=== PATIENT | female | born 1965 | race Hispanic/Latino ===

== ENCOUNTER 2022-12-01 13:34 | Emergency (ER) | payer OTHER ==
--- OUTSIDE RECORDS SUMMARY | 2022-12-01 13:37 | XMS REPORT | Continuity of Care Document ---
:[address] [facility] [place], [place] t Address 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 00:00: Hospit a 00 l Rheumatoid Rheumatoid Disease Active M ethodi arthritis arthritis [facility] Wrist Wrist Problem Active 2019-05-01 Memor ia arthritis arthritis 02:46:27 l Active [place] Problem 05/01/2019 Kristina Najam Rheumatoid Problem Active 2019-05-01 M emoria arthritis Rheumatoid 02:46:27 l arthritis Jacques Active Problem 05/01/2019 Kristina Najam Ankle Ankle Diagnosis Active 2019-03-10 Mem oria swelling swelling 02:47:14 l Active [place] Diagnosis 03/10/2019 Kristina Najam 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 02:46:27 l Problem Jacques 05/01/2019 Kristina Najam Allergies, Adverse Reactions, Alerts Allergy Allergy Status Severity Reaction(s) Onset Inactive Treating Comm ents Source Name Type Date Date Clinician Codeine Codeine Active Info Not 2019- Memori a Phosphat Phosphat Available 4-04 l e e 00:00: Jacques 00 Social History Social Habit Start Date Stop Date Quantity Comments Source Alcohol intake 2022-08-12 2022-08-12 Ex-drinker [facility] 00:00:00 00:00:00 (finding) Hospital Tobacco use and 2022-04-15 2022-04-15 Smokeless tobacco Me thodist exposure 00:00:00 00:00:00 non-user Hospital Alcohol Comment 2021-09-17 2021-09-17 rare [facility] 00:00:00 00:00:00 Hospital Sex [birth year] At [birth year] [facility] 00:00:00 00:00:00 Hospital Smoking Status Start Date Stop Date Source Never smoked tobacco [facility] Medications Ordered Filled Start Stop Current Ordering Indication Dosage Frequency Signature Comments Components Source Medication Medication Date Date Medication? Clinician (SIG) Name Name omega Yes 1 capsule Methodi 3-dha-epa-f 08-12 st shan oil 09:34: Hospita (Fish OiL) 49 l 100-160-1,0 00 mg capsule multivitami Yes Chew. 1 po Methodi n - daily st tablet,chew 09:34: Hospit a able 49 l cetirizine Yes 10mg QD Take 10 mg M ethodi (ZyrTEC) 10 08-[address] MG tablet 09:34: daily. Prn Ho spita 49 allergy l symptoms cholecalcif Yes 400U QD Take 400 Me thodi asad, 9-[address] vitamin D3, 09:34: mouth Hospi ta 400 unit 49 daily. l tablet ipratropium 2021- No 2{spray Q12H 2 sprays Methodi (ATROVENT) 1-24 01-24 } into each st 21 mcg 15:45: 00:00 nostril Hospita (0.03 %) 38 :00 every 12 l nasal spray (twelve) hours. clindamycin 2021- No 300mg Q.5D Take 300 Methodi (CLEOCIN) 1-24 01-[address] 300 MG 15:45: 00:00 mouth 2 Hospita capsule 31 :00 (two) l times a day. methotrexat 2020-11 Yes Method i e sodium 1- st (METHOTREXA 00:00: Hospit a TE, 00 l ANTI-RHEUMA TIC, ORAL) folic acid Yes Methodi (FOLVITE) 1 8-23 st MG tablet 00:00: Hospita 00 l Vitamin D Yes Marium Peña 1 tablet Memoria 6-08 l 02:46: [place] Fish Oil Yes Marium Peña 1 capsule Memoria 6-08 l 02:46: Jacques Vitamin K2 Yes Marium Peña as M emoria 6-08 directed l 02:46: [place] Flaxseed Yes Marium Peña as Mem oria Oil 6-08 directed l 02:46: Jacques PredniSONE Yes Marium Peña 4 tab/d x Memoria 1-10 3days, 3 l 00:00: tab/d x Jacques 00 3days, 2 tab/dx 3days, 1 tab/d x 3days Vital Signs Vital Name Observation Time Observation Value Comments Source Systolic blood 2022-08-12 14:35:00 122 mm[Hg] [facility] pressure Diastolic blood 2022-08-12 14:35:00 79 mm[Hg] [facility] pressure Heart rate 2022-08-12 14:35:00 73 /min [facility] Respiratory rate 2022-08-12 14:35:00 18 /min [facility] Body height 2022-08-12 14:35:00 162.6 cm [facility] Body weight 2022-08-12 14:35:00 83.28 kg [facility] BMI 2022-08-12 14:35:00 31.51 kg/m2 [facility] Oxygen saturation in 2022-08-12 14:35:00 100 /min [facility] Arterial blood by Pulse oximetry Height 2019-04-30 19:00:00 [facility] [place] Diastolic (mm Hg) 2019-04-30 19:00:00 [facility] [place] Systolic (mm Hg) 2019-04-30 19:00:00 Adam rial [place] Weight 2019-04-30 19:00:00 [facility] Jacques Height 2019-03-26 19:00:00 [facility] Jacques Diastolic (mm Hg) 2019-03-26 19:00:00 Mem orial [place] Systolic (mm Hg) 2019-03-26 19:00:00 Adam rial Jacques Weight 2019-03-26 19:00:00 [facility] [place] Height 2019-02-26 16:45:00 [facility] [place] Diastolic (mm Hg) 2019-02-26 16:45:00 Mem orial Jacques Systolic (mm Hg) 2019-02-26 16:45:00 Adam rial [place] Weight 2019-02-26 16:45:00 [facility] [place] Height 2019-02-25 15:45:00 [facility] [place] Diastolic (mm Hg) 2019-02-25 15:45:00 Mem orial [place] Systolic (mm Hg) 2019-02-25 15:45:00 Adam rial [place] Weight 2019-02-25 15:45:00 [facility] [place] Height 2019-01-29 19:30:00 [facility] Diastolic (mm Hg) 2019-01-29 19:30:00 Mem orial Jacques Systolic (mm Hg) 2019-01-29 19:30:00 Adam rial [place] Weight 2019-01-29 19:30:00 [facility] [place] Height 2019-01-15 19:30:00 [facility] [place] Diastolic (mm Hg) 2019-01-15 19:30:00 Mem orial Jacques Systolic (mm Hg) 2019-01-15 19:30:00 Adam rial [place] Weight 2019-01-15 19:30:00 [facility] [place] Height 2018-12-28 21:30:00 [facility] [place] Diastolic (mm Hg) 2018-12-28 21:30:00 Mem orial [place] Systolic (mm Hg) 2018-12-28 21:30:00 Adam rial Jacques Weight 2018-12-28 21:30:00 [facility] [place] Diastolic (mm Hg) 2018-12-03 18:30:00 Mem orial [place] Systolic (mm Hg) 2018-12-03 18:30:00 Adam rial Jacques Weight 2018-12-03 18:30:00 [facility] [place] Procedures Procedure Date / Time Performing Clinician Source Performed CBC WITH PLATELET AND 2022-08-02 14:34:00 Salome Ravi [facility] DIFFERENTIAL [place] COMPREHENSIVE METABOLIC 2022-08-02 14:34:00 [facility] PANEL [place] LDH 2022-08-02 14:34:00 [facility], [facility] [place] BETA-2 MICROGLOBULIN 2022-08-02 14:34:00 [facility], [facility] [place] CBC WITH PLATELET AND 2022-04-08 17:23:00 [facility] DIFFERENTIAL [place] COMPREHENSIVE METABOLIC 2022-04-08 17:23:00 [facility] PANEL [place] LDH 2022-04-08 17:23:00 [facility] [place] BETA-2 MICROGLOBULIN 2022-04-08 17:23:00 [facility], [facility] [place] LDH 2021-12-11 16:32:00 [facility] COMPREHENSIVE METABOLIC 2021-12-11 16:32:00 [facility] PANEL CLL PROGNOSTIC PANEL, 2021-12-11 16:32:00 [facility] COMPREHENSIVE CBC WITH PLATELET AND 2021-12-11 16:32:00 [facility] DIFFERENTIAL Plan of Care Planned Activity Planned Date Details Comments Source Future Scheduled 2022-11-18 COVID-19 VACCINE (#1) [facility] Test 21:00:42 [code = COVID-19 VACCINE (#1)] Future Scheduled 2022-11-18 Pneumococcal Vaccine: [facility] Test 21:00:42 Pediatrics (0 to 5 Years) and At-Risk Patients (6 to 64 Years) (1 - PCV) [code = Pneumococcal Vaccine: Pediatrics (0 to 5 Years) and At-Risk Patients (6 to 64 Years) (1 - PCV)] Future Scheduled 2022-11-18 SHINGLES VACCINES (1 Met [facility] Test 21:00:42 of 2) [code = SHINGLES VACCINES (1 of 2)] Future Scheduled 2022-11-[address] [facility] Test 21:00:42 malignant neoplasm of cervix (procedure) [code = 710643545] Future Scheduled 2022-11-[address] [facility] Test 21:00:42 SCREENING [code = BREAST CANCER SCREENING] Future Scheduled 2022-11-18 COLONOSCOPY SCREENING [facility] Test 21:00:42 [code = COLONOSCOPY SCREENING] Future Scheduled 2022-11-18 INFLUENZA VACCINE [facility] Test 21:00:42 [code = INFLUENZA VACCINE] Encounters Start End Encounter Admission Attending Care Care Encounter Source Date/Time Date/Time Type Type Clinicians Facility Department ID 2022-12-01 Outpatient [id number] Memoria 13:36:38 [id number] [place] [id number] 2022-08-12 2022-08-12 Office Breonna, 1.2.840.1 [id number] Methodi 09:30:00 09:57:41 Visit Salome 55222.1.1 239 s t [place] 3.430.2.7 Hospit a .3.538922 l .8 2022-08-12 2022-08-12 Outpatient [facility] [id number] Agency 00:00:00 00:00:[address] [place] [address] 2022-08-12 2022-08-12 Travel 1.2.840.1 [id number] Methodi 00:00:00 00:00:[address] 3.430.2.7 0.2.7.3.698 spita .3.891440 084.8 l .8 2022-08-02 2022-08-02 Telephone Valentin, 1.2.840.1 [id number] Methodi 00:00:00 00:00:[address] 3.430.2.7 Hospit a .3.160368 l .8 2022-04-15 2022-04-15 Office Breonna, 1.2.840.1 [id number] Methodi 09:30:00 09:57:31 Visit [place] 36336.1.1 445 s t [place] 3.430.2.7 Hospit a .3.994343 l .8 2022-04-15 2022-04-15 Outpatient BREONNA, [facility] [id number] Agency 00:00:00 00:00:00 [place] [address] Met [facility] st 2021-12-17 2021-12-17 Telemedici Breonna, 1.2.840.1 [id number] Methodi 09:30:00 10:07:03 ne [place] 91115.1.1 725 s t [place] 3.430.2.7 Hospit a .3.729986 l .8 2021-12-17 2021-12-17 Outpatient BREONNA, [facility] [id number] Agency 00:00:00 00:00:00 [place] 725 Met [facility] st 2021-12-11 2021-12-11 Orders Geoff, 1.2.840.1 [id number] Methodi 00:00:00 00:00:00 Only Dongx[place] [address]87.1.[address] 3.430.2.7 Hospit a .3.672324 l .8 2021-09-17 2021-09-17 Outpatient BREONNA, [facility] [id number] Agency 00:00:00 00:00:00 [place] 005 Met [facility] 2021-09-11 2021-09-11 Outpatient GEOFF [facility] [id number] Agency 00:00:00 00:00:00 DONGXIN [address] 2021-09-06 2021-09-06 Outpatient MAINORU, [facility] [id number] Agency 00:00:00 00:00:00 [place] 812 Met [facility] 2021-07-16 2021-07-16 Outpatient GEGE, [facility] [id number] Agency 00:00:00 00:00:00 BENJAMIN [address] 2021-07-02 2021-07-02 Outpatient GEGE, [facility] [id number] Agency 00:00:00 00:00:00 BENJAMIN [address] 2019-04-30 2019-04-30 Outpatient [facility] [id number] Memoria 14:00:00 14:00:00 Rheumatol Rheumatolog l ogy y [facility], , [facility] 2019-03-26 2019-03-26 Outpatient [facility] [id number] Memoria 14:00:00 14:00:00 Rheumatol Rheumatolog l [facility], , [facility] 2019-02-26 2019-02-26 Outpatient [facility] [id number] Memoria 11:45:00 11:45:00 Rheumatol Rheumatolog l [facility], , [facility] 2019-02-25 2019-02-25 Outpatient [facility] [id number] Memoria 10:45:00 10:45:00 Rheumatol Rheumatolog l [facility], , [facility] 2019-01-29 2019-01-29 Outpatient [facility] [id number] Memoria 14:30:00 14:30:00 Rheumatol Rheumatolog [facility], , [facility] 2019-01-15 2019-01-15 Outpatient [facility] [id number] Memoria 14:30:00 14:30:00 Rheumatol Rheumatolog l [facility], , [facility] 2018-12-28 2018-12-28 Outpatient [facility] [id number] Memoria 15:30:00 15:30:00 Rheumatol Rheumatolog l [facility], , [facility] 2018-12-03 2018-12-03 Outpatient [facility] [id number] Memoria 13:26:00 13:26:00 Rheumatol Rheumatolog [facility], , [facility] 2018-12-03 2018-12-03 Outpatient [facility] [id number] Memoria 12:30:00 12:30:00 Rheumatol Rheumatolog l y y [facility], , [facility] Results Test Description Test Time Test Comments Results Result Comments Source Comprehensive metabolic panel 2022-08-05 23:58:00 Test Item Value Reference Range Interpretation Comme nts Glucose (test code = 95 mg/dL 65-99 Fastin g reference 2345-7) interval BUN (test code = 3094-0) 18 mg/dL 7-25 Creatinine (test code = 0.73 mg/dL 0.50-1.03 2160-0) eGFR (test code = 8257) See_Comment The eGFR is based on the CKD-EPI 202 1 equation. To ca lculate the new eGFR fr om a previous Creati nine or Cystatin Cresul t, go to [email or web address] abrahan.org/ professionals/k doqi/gfr %5Fcalculator [Automated mess age] The system which ge nerated this result tra nsmitted reference range : > OR = 60 mL/min/1.73m 2. The reference range was not used to interpr et this result as normal/abnormal . BUN/creatinine ratio NOT APPLICABLE See_Comment [Aut omated message] (test code = 3097-3) The [employer] tem which generated this result transmitted ref erence range: 6 - 22 ( calc). The reference r kevin was not used to int erpret this result as normal/abnormal . Sodium (test code = 139 mmol/L 581-795 6015-2) Potassium (test code = 4.9 mmol/L 3.5-5.3 2823-3) Chloride (test code = 104 mmol/L 98-110 2075-0) CO2 (test code = 2027-9) 30 mmol/L 20-32 Calcium (test code = 9.6 mg/dL 8.6-10.4 79743-5) Protein (test code = 7.1 g/dL 6.1-8.1 2885-2) Albumin, S (test code = 4.1 g/dL 3.6-5.1 1751-7) Globulin, total (test See_Comment [Auto mated message] code = 88098-2) The system w [employer] generated this result transmitted ref erence range: 1.9 - 3. 7 g/dL (calc). The ref erence range was not u sed to interpret this result as normal/abnor mal. Albumin/globulin ratio See_Comment [Aut omated message] (test code = 1759-0) The [employer] tem which generated this result transmitted ref erence range: 1.0 - 2. 5 (calc). The ref erence range was not u sed to interpret this result as normal/abnor mal. Total bilirubin (test 0.5 mg/dL 0.2-1.2 code = 1974-2) Alkaline phosphatase 78 U/L 37-153 (test code = 6768-6) AST (test code = 1920-8) 25 U/L 10-35 ALT (test code = 1742-6) 22 U/L 6-29 TAYLA (test code = TAYLA) FASTING:YES FASTING: YES RAC (test code = RAC) Performing Organization Information: Site ID: KAYA Name: [facility] Address: [address] [place] [phone] Director: Neeraj KimbleCook [facility] CenterBeta-2 [id number] 23:58:00 Test Item Value Reference Range Interpretation Comments Beta-2 microglobulin 2.11 mg/L See_Comment [Autom ated (test code = 1952-1) message ] The system which generated this result transmitted reference range : < OR = 2.51. Th e reference range was not used to interpret this result as normal/abnormal . TAYLA (test code = FASTING:YES TAYLA) FASTING: YES RAC (test code = Performing RAC) Organization Information: Site ID: IG Name: [facility] Address: [address] [place] [id number] Director: Dr. Neeraj CastañedaUniversity Hospitals TriPoint [facility] CenterLDH2022-09-12 23:58:00 Test Item Value Reference Range Interpretation Comments LDH (test code = 141 U/L 120-250 32779-7) TAYLA (test code = FASTING:YES FASTING: YES TAYLA) RAC (test code = Performing Organization RAC) Information: Site ID: KAYA Name: [facility] Address: [address] [place] [phone] Director: Neeraj [facility]Mer[facility] Hospital[facility] with platelet and [id number] 23:58:00 Test Item Value Reference Interpretation Comments Range WBC (test code = See_Comment H [Automated message] 6690-2) The system [employer] generated this result transmitted ref erence range: 3.8 - 10 .8 Thousand/uL. Th e reference range was not used to int erpret this result as normal/abnormal . RBC (test code = See_Comment [Automated message] 789-8) The system [employer] generated this result transmitted ref erence range: 3.80 - 5 .10 Million/uL. The reference range was not used to int erpret this result as normal/abnormal . HGB (test code = 13.1 g/dL 11.7-15.5 718-7) HCT (test code = 41.0 % 35.0-45.0 4544-3) MCV (test code = 95.1 fL 80.0-100.0 787-2) MCH (test code = 30.4 pg 27.0-33.0 785-6) MCHC (test code = 32.0 g/dL 32.0-36.0 786-4) RDW (test code = 13.7 % 11.0-15.0 788-0) Platelet count See_Comment [Automated m essage] (test code = 777-3) The syst em which generated this result transmitted ref erence range: 140 - 40 0 Thousand/uL. Th e reference range was not used to int erpret this result as normal/abnormal . MPV (test code = 12.2 fL 7.5-12.5 776-5) Neutrophils, See_Comment [Automated mes mar] absolute (test code The syst em which = 751-8) generated this result transmitted ref erence range: 1,500 - 7,800 cells/uL. The reference range was not used to int erpret this result as normal/abnormal . Lymphocytes, See_Comment H [Automated mes mar] absolute (test code The syst em which = 731-0) generated this result transmitted ref erence range: 850 - 3, 900 cells/uL. The reference range was not used to int erpret this result as normal/abnormal . Monocytes, absolute See_Comment H [Automa alan message] (test code = 742-7) The syst em which generated this result transmitted ref erence range: 200 - 95 0 cells/uL. The reference range was not used to int erpret this result as normal/abnormal . Eosinophils, See_Comment [Automated mes mar] absolute (test code The syst em which = 711-2) generated this result transmitted ref erence range: 15 - 500 cells/uL. The reference range was not used to int erpret this result as normal/abnormal . Basophils, absolute See_Comment [Automa alan message] (test code = 704-7) The syst em which generated this result transmitted ref erence range: 0 - 200 cells/uL. The reference range was not used to int erpret this result as normal/abnormal . Neutrophils (test 7.8 % code = 770-8) Lymphocytes (test 89.1 % code = 736-9) Monocytes (test 2.3 % code = 5905-5) Eosinophils (test 0.6 % code = 713-8) Basophils + RC 0.2 % (test code = 706-2) Nucleated RBC (test Smudge c ells code = 8251-1) present.Revie w of peripheral smea r confirmsautomat ed results. TAYLA (test code = FASTING:YES TAYLA) FASTING: YES RAC (test code = Performing RAC) Organization Information: Site ID: RGA Name: [facility] Address: [address] [place] [phone] Director: Neeraj Brock Lab Interpretation Abnormal (test code = 00535-6) [facility] HospitalChronic Lymphocytic Leukemia (CLL) Prognostic Panel, [id number] 05:22:00 Test Item Value Reference Interpretation Comments Range COMPREHENSIVE SEE NOTE Results review ed by Lrary CROWE (test Pamela Waterman CLINICAL code = 3937) DIAGNOSIS:Chron ic lymphocytic dakota kemia. DIAGNOSIS: The Peripheral blood sample wa s analyzed for prognosticf actors in Chronic Lymphoc ytic Leukemia: 88% o f lymphoid cells are CD19+ positive cells. These CD 19+cells showed 48% posi tivity for ZAP70 and 23% p ositivity forCD38. Fish a nalysis showed a negati ve result. Chromosomeanaly sis revealed a normal karyot ype. B2 microglobulin n otperformed. IgVH gene seque ncing was unmutated and b elongs toVH1-69 family . IN SUMMARY, THE CLL LEUKEMI C CELLS IN THIS PATIENT SH OWUNFAVORABLE PROGNOSTIC FEAT URES BASED ON THE LIMITED MAR KERSSTUDIED. CORRELATION WIT H CLINICAL AND OTHER DIAGNOSTICINFOR MATION IS RECOMMENDED. Th is prognostic evaluation is r elevant in patients withch ronic lymphocytic dakota kemia and the diagnosis of CL L shouldbe confirmed befor e the use of this prognostic panel. This is a final repo rt. If you have any questi ons about this report, pl ease [phone], extension [phone]. Viability (test 96 % code = 00043-8) ZAP70+/CD19+ 48 % See_Comment H 88% of the lymp hocytes are (test code = CD19 positive a nd 42% of 96271-7) theselected lym phocytes express ZAP70 w ith CD19. Therefore, 48%o f the B-cells (CD19 positive) are ZAP70 positive. Our d mil shows that patients w ith >/= 10% ZAP70 posit ivecells have more aggressive disease. Positivity for ZAP-70 in the leukemic cells in patients withchronic lym phocytic leukemia usuall y, but not always,correlat es with more aggressive dise ase, unmutated IgVH, andpositivity f or CD38. Negativity for ZAP-70 does not alwaysrule out unmutated IgVH or aggress mariluz disease. We stronglyreco mmend correlation wit h IgVH mutation. As an internal control, we gat ed on T-cells. 7% of thelymphocytes are CD3 positive and 6% of the selectedlymphoc ytes express ZAP70 with CD3. Therefore, 86% of theT-joe ls (CD3 positive) are Z AP70 positive. This test was developed and i ts analytical performancechar acteristics have been deter mined by [employer] [facility]. It has not beencleared or approved by FDA. This assay has been validatedpursua nt to the CLIA regulation s and is used for clinicalpur poses. [Automated mess age] The system which ge nerated this result transmit alan reference range: <=10. Th e reference range was not u sed to interpret this result as normal/abnormal . % OF CD19/CD5 23 % See_Comment [Automated me ssage] The (test code = system which ge nerated this 8131-5) result transmit alan reference range: <=30. Th e reference range was not u sed to interpret this result as normal/abnormal . IGVH STATUS (test UNMUTATED code = 96410-9) Mutation rate SEE NOTE Results review ed by Marko (test code = Pamela Mobley 3941) Mutation Rate: 0.00% Based on the sequence analysis the clonal IgVH gen e belongsto VH1-69 family. The IgVH gene mutation status of B-cell chronic lymphoc yticleukemia (CLL) was deter mined by PCR-based amplificationfo llowed by [place] sequencosvaldo ng. B-cell CLL patients wi thunmutated IgVH gene usual ly have more aggressive dise ase andshorter surv ival. In contrast, patie nts with mutated geneusu ally have a more indolent d isease. Specimen contai ningless than 10% clonal B-ce lls may not yield an interpretablere sult. This test was develo ped and its analytical performancechar acteristics have been deter mined by [employer].It has not been cleared or approved by the FDA. This a ssayhas been validated pursu ant to the CLIA regulation s and isused for clinical pu rposes. Beta-2 TNP mg/L TEST NOT PERFOR MED Duplicate microglobulin test. (test code = 1952-1) FISH,B CELL See Below Order ID: [id number] Specimen LYMPHOCYTIC Type: Blood Cli nical LEUKEMIA PANEL Indication: C hronic (test code = lymphocytic dakota kemia of B- 16324-5) not having achi eved remission RESUL T:NEGATIVE FISH RESULT for TRISOMY 12, DELETIONS OF 6q , GEORGIE,13q14 and TP53 INTERP RETATION:FISH analysis, using probes described below , did not detecttrisomy 1 2 (yvrose 12) or deletions of 6q (6q21,6q23), GEORGIE(11q22.3), 1 3q14, and TP53 (17p13.1), common abnormalitiesob served in chronic lymphoc ytic leukemia/small lymphocyticlymp fabiana (CLL/SLL). Plea se expect the result of any o ther concurrent test in aseparate report. RECOMMENDATIONS :Correlation with a chromoso me result as well as othercl inical and laboratory find ings is recommended. NOMENCLATURE:nu c shan(SEC63,MYB,A TM,D12Z3,DLEU ,LAMP1,TP53)x2[ 100] ASSAY INFORMATION:Met hod: FISH (Digital Image Analysis: [employer]/Met afer)Cells Counted: 300 Th is test will not detect othe r cytogenetic abnormalitiesth at may have clinical signif icance. Fluorescence in-situhybridiz ation (FISH) was performed u sing the probes specific for chromosome casey ons 6q21/6q23 (SEC63,MYB), 11 q22.3 (GEORGIE),12 centro mere (D12Z3), 13q14 (DLEU), 1 3q34 (LAMP1), ywl36q15.1 (TP5 3; p53) [MetaSystems]. The cutoff values for marc pheral blood and bone marrow are,respectivel y: 6q21- (4%) (6%), 6q23- (4% ) (3%), 6q- (4%)(5%), 11q(6 %) (4%), +12 (4%) (5%), 13q- (4%) (4%), -13 (4%)(3%), 1 7p- (5%) (5%). This test was developed and i ts analytical performancechar acteristics have been deter mined by [employer] [facility], [place], [place]. It has not beencleared or approved by the U.S. Food a nd DrugAdministrat ion. This assay has been validated pursuant [facility] CLIA regulations and is used for clinical purpos es. Donta Valencia, PhD, FA [facility] (060) [id number] El ectronic Signature: 12/15 5:00 PM CHROMOSOME See Below Order ID: [id number] Specimen ANALYSIS, CLL/LPD Type: Bloo d Clinical (test code = Indication: Chr onic 84764-1) lymphocytic [place] kemia of B- not having achi eved remission RESUL T:NORMAL KARYOTYPE ([facility] STUDY) INTERPRETATION: Chromosome analysis reveal ed a normal karyotype with noevidence of any acquired cl onal abnormality. Ho wever, thisis a limited study ; only 5 metaphase cells were availablefor is study. Low mitotic activit y precluded the standardana lysis of 20 metaphases. Ple ase expect the results of any other concurrent stud y in aseparate repor t. RECOMMENDATIONS :Correlation with other clin ical and laboratory find ings isrecommended. NOMENCLATURE:46 ,XX[5] ASSAY INFORMATION:Met hod: G-Band (Digital Analys is: MetaSystCells C ounted: 5Band Level: 400Cells Analyzed: 5Cells Karyotyp ed: 2 This normal result d oes not exclude a hematologicmali gnancy. Small clonal populati ons and subtle chromosomeabnor malities may not be identifi ed. Kwan Carrero, PhD, FA CMG Electronic Sign ature: 12/19/2021 2:50 PM TAYLA (test code = FASTING: TAYLA) UNKNOWN RAC (test code = Performing RAC) Organization Information: Site ID: Name[facility], Address: [address] [place] [id number] Director: Cathy Houston MD,PhD,SANJAY Lab Abnormal Interpretation (test code = 63936-9) [facility]
[2022-12-01] MEDS ORDERED: MORPHINE 4 MG/ML SYR ONE (13:53)
[2022-12-01] MEDS ORDERED: ASPIRIN 81 MG CHEWABLE TABLET ONE (13:53)
[2022-12-01] MEDS ORDERED: ONDANSETRON 4 MG/2 ML VIAL ONE (13:54)
--- NOTE | 2022-12-01 14:28 | RAD REPORT ---
EXAM DESCRIPTION: RAD - Chest Single View - 12/01/2022 2:23 pm CLINICAL HISTORY: CHEST PAIN Chest pain. COMPARISON: No comparisons FINDINGS: Portable technique limits examination quality. The lungs are grossly clear. The heart is normal in size. No displaced fractures. IMPRESSION: No acute intrathoracic process suspected.
[2022-12-01 16:14] LABS: Absolute Lymphocytes (CBC) 54.1 K/uL (0.7-4.9); Hematocrit 39.9 % (36.0-45.0); Lymphocytes % 84.8 % (15.3-44.8); MCV 93.9 fL (80-100); RBC Red Blood Cell Count 4.25 M/uL (3.86-4.86)
[2022-12-01 16:32] LABS: Albumin 3.5 g/dL (3.4-5.0); Bilirubin Total 0.4 mg/dL (0.2-1.0); Magnesium 2.2 mg/dL (1.6-2.4); Potassium 4.8 mmol/L (3.5-5.1); Protein, Total 7.2 g/dL (6.4-8.2); Troponin High Sensitivity 4.1 pg/mL (<58.9)
[2022-12-01 17:24] LABS: Platelet Estimate ADEQ; White Blood Cell Scan OK (OK)
[2022-12-01 17:25] LABS: Anisocytosis 1+; Blood Morphology Comment NOTED (NOT SEEN)
--- NOTE | 2022-12-01 18:01 | RAD REPORT ---
EXAM DESCRIPTION: US - Abdomen Exam Limited - 12/01/2022 5:52 pm CLINICAL HISTORY: ABD PAIN COMPARISON: No comparisons FINDINGS: The gallbladder demonstrates multiple gallstones and gallbladder sludge. No pericholecysti c fluid or gallbladder wall thickening. The common bile duct is normal measuring 3 mm. The liver demonstrates no findings of intrahepatic biliary dilatation. IMPRESSION: Cholelithiasis and gallbladder sludge.
--- NOTE | 2022-12-01 18:12 | ER ---
Nurse's Notes [facility] Name: Libia Vann Age: 57 yrs Sex: Female : 1965 Arrival Date: 12/01/2022 Time: 13:36 Bed 15 Private MD: Diagnosis: Upper abdominal pain, unspecified;Chest pain, unspecified Presentation: 12/01 13:44 Chief complaint: Substernal chest pain x 10 minutes. Coronavirus screen: At this time, hb the client does not indicate any symptoms associated with coronavirus-19. Ebola Screen: No symptoms or risks identified at this time. Initial Sepsis Screen: Does the patient meet any 2 criteria? No. Patient's initial sepsis screen is negative. Does the patient have a suspected source of infection? No. Patient's initial sepsis screen is negative. Risk Assessment: Do you want to hurt yourself or someone else? Patient reports no desire to harm self or others. Onset of symptoms was December 01, 2022. 13:44 Method Of Arrival: Wheelchair hb 13:44 Acuity: ERMIAS 3 hb Triage Assessment: 13:45 General: Appears distressed, uncomfortable, Behavior is cooperative, appropriate for bp age, agitated, anxious. Pain: Complains of pain in chest. EENT: No deficits noted. Neuro: No deficits noted. Cardiovascular: No deficits noted. Respiratory: No deficits noted. GI: No signs and/or symptoms were reported involving the gastrointestinal system. : No signs and/or symptoms were reported regarding the genitourinary system. Derm: No deficits noted. Musculoskeletal: No deficits noted. Historical: - Allergies: 13:45 No Known Allergies; hb - PMHx: 13:45 CLL; RA; hb - Immunization history:: Adult Immunizations up to date. - Social history:: Smoking status: Patient denies any tobacco usage or history of. Screenin:00 [facility] ED Fall Risk Assessment (Adult) History of falling in the last 3 months, bp including since admission No falls in past 3 months (0 pts). Abuse screen: Denies threats or abuse. Denies injuries from another. Nutritional screening: No deficits noted. Tuberculosis screening: No symptoms or risk factors identified. Assessment: 13:45 General: SEE TRIAGE NOTE. bp 15:14 Reassessment: No changes from previously documented assessment. Patient and/or family bp updated on plan of care and expected duration. Pain level reassessed. 17:00 Reassessment: US PENDING. bp 18:41 Reassessment: PT DC HOME AMBULATORY WITH FAMILY. bp Vital Signs: 13:44 BP 148 / 80; Pulse 76; Resp 16; Temp 97.9(TE); Pulse Ox 98% on R/A; Weight 81.65 kg; hb Height 5 ft. 4 in. (162.56 cm); Pain 8/10; 15:12 BP 114 / 48; Pulse 60; Resp 15; Pulse Ox 100% ; bp 17:00 BP 107 / 66; Pulse 58; Resp 16; Pulse Ox 97% ; bp 18:41 BP 122 / 62; Pulse 62; Resp 16; Pulse Ox 100% ; bp 13:44 Body Mass Index 30.90 (81.65 kg, 162.56 cm) hb ED Course: 13:36 Patient arrived in ED. hb 13:39 Kasandra Llanes FNP-C [facility]. kb 13:39 Erasto Rubio MD is Attending Physician. kb 13:41 Jose Rausch, ADALI is Primary Nurse. bp 13:45 Triage completed. hb 13:45 Arm band placed on. hb 14:00 Patient has correct armband on for positive identification. Bed in low position. Call bp light in reach. Side rails up X2. Adult w/ patient. 14:00 Inserted saline lock: 20 gauge in right antecubital area, using aseptic technique. bp Blood collected. 14:25 XRAY Chest (1 view) In Process Unspecified. EDMS 17:54 US Abdomen Limited In Process Unspecified. EDMS 18:41 No provider procedures requiring assistance completed. IV discontinued, intact, bp bleeding controlled, No redness/swelling at site. Pressure dressing applied. Administered Medications: 14:00 Drug: Aspirin Chewable Tablet 324 mg Route: PO; bp 15:59 Follow up: Response: No adverse reaction bp 14:00 Drug: morphine 4 mg Route: IVP; Infused Over: 4 mins; Site: right antecubital; bp 15:59 Follow up: Response: No adverse reaction bp 14:00 Drug: Zofran (Ondansetron) 4 mg Route: IVP; Site: right antecubital; bp 16:00 Follow up: Response: No adverse reaction bp Medication: 15:14 VIS not applicable for this client. bp Outcome: 18:11 Discharge ordered by . tara 18:41 Discharged to home ambulatory, with family. bp 18:41 Condition: stable 18:41 Discharge instructions given to patient, Instructed on discharge instructions, follow up and referral plans. Demonstrated understanding of instructions, follow-up care. 18:43 Patient left the ED. bp Signatures: Dispatcher [employer] EDMS Kasandra Llanes, CARINA-C TATTOOER-Tamara Knutson, RN RN Jose Cuba RN RN bp Corrections: (The following items were deleted from the chart) 15:15 15:12 Pulse 60bpm; Resp 15bpm; Pulse Ox 100%; bp bp
--- NOTE | 2022-12-01 18:12 | EDPHYS ---
Physician Documentation [facility] Name: Libia Vann Age: 57 yrs Sex: Female : 1965 Arrival Date: 12/01/2022 Time: 13:36 Bed 15 Private MD: ED Physician Erasto Rubio HPI: 12/01 13:44 This 57 yrs old Female presents to ER via Unassigned with complaints of chest kb pain. 13:44 The patient or guardian reports chest pain that is located primarily in the chest kb diffusely. Onset: 10 minute(s) ago. The pain does not radiate. Associated signs and symptoms: The patient has no apparent associated signs or symptoms. The chest pain is described as sharp. Duration: The patient or guardian reports a single episode, that is still ongoing. Modifying factors: The symptoms are alleviated by nothing. the symptoms are aggravated by nothing. Severity of pain: At its worst the pain was moderate in the emergency department the pain is unchanged. The patient has not experienced similar symptoms in the past. The patient has not recently seen a physician. 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 Historical: - Allergies: 13:45 No Known Allergies; hb - PMHx: 13:45 CLL; RA; hb - Immunization history:: Adult Immunizations up to date. - Social history:: Smoking status: Patient denies any tobacco usage or history of. ROS: 13:49 Constitutional: Negative for fever, chills, and weight loss. kb 13:49 Cardiovascular: Positive for chest pain. 13:49 All other systems are negative. Exam: 13:49 Head/Face: Normocephalic, atraumatic. ENT: Moist Mucous membranes Cardiovascular: kb Regular rate and rhythm with a normal S1 and S2. No gallops, murmurs, or rubs. No pulse deficits. Respiratory: Respirations even and unlabored. No increased work of breathing. Talking in full sentences Abdomen/GI: Soft, non-tender. No distention Skin: Warm, dry with normal turgor. Normal color. MS/ Extremity: Pulses equal, no cyanosis. Neurovascular intact. Full, normal range of motion. Neuro: Awake and alert, GCS 15, oriented to person, place, time, and situation. Moves all extremities. Normal gait. 13:49 Constitutional: The patient appears alert, awake, in obvious pain. 13:56 ECG was reviewed by the Attending Physician. kb Vital Signs: 13:44 BP 148 / 80; Pulse 76; Resp 16; Temp 97.9(TE); Pulse Ox 98% on R/A; Weight 81.65 kg; hb Height 5 ft. 4 in. (162.56 cm); Pain 8/10; 15:12 BP 114 / 48; Pulse 60; Resp 15; Pulse Ox 100% ; bp 17:00 BP 107 / 66; Pulse 58; Resp 16; Pulse Ox 97% ; bp 18:41 BP 122 / 62; Pulse 62; Resp 16; Pulse Ox 100% ; bp 13:44 Body Mass Index 30.90 (81.65 kg, 162.56 cm) hb MDM: 13:40 Patient medically screened. kb 13:48 Data reviewed: vital signs, nurses notes. Data interpreted: Pulse oximetry: on room air kb is 98 %. Interpretation: normal. 13:49 The patient was given aspirin in the Emergency Department. kb 13:49 Differential diagnosis: acute myocardial infarction, anxiety, coronary artery disease kb chest wall pain, Cholelithiasis gastroesophageal reflux disease (GERD), pancreatitis. 18:10 Counseling: I had a detailed discussion with the patient and/or guardian regarding: the kb historical points, exam findings, and any diagnostic results supporting the discharge/admit diagnosis, lab results, radiology results, the need for outpatient follow up, a family practitioner, a general surgeon, a scow hand, to return to the emergency department if symptoms worsen or persist or if there are any questions or concerns that arise at home. 19:13 ED course: Consideration of hospitalization: Hospitalization considered for chest pain kb but patient's heart score is 1, symptoms have completely resolved, patient wants to go home. Diagnostic test considered but not performed: Considered CT chest but patient elected not to have this done at this time. Review of external records: Patient's labs reviewed from other facility, which she pulled up on her phone. White blood cell count was 65.2 on August 02, 2022. Patient states her white blood cell count has been in the 60s for years. History obtained from: Patient . 12/01 13:44 Order name: CBC with Diff; Complete Time: 17:26 kb 12/01 13:44 Order name: Magnesium; Complete Time: 16:39 kb 12/01 13:44 Order name: Troponin HS; Complete Time: 16:39 kb 12/01 13:44 Order name: XRAY Chest (1 view); Complete Time: 14:38 kb 12/01 13:44 Order name: CMP; Complete Time: 16:39 kb 12/01 17:25 Order name: CBC Smear Scan; Complete Time: 17:26 EDMS 12/01 13:44 Order name: EKG; Complete Time: 13:44 kb 12/01 13:44 Order name: Cardiac monitoring; Complete Time: 13:56 kb 12/01 13:44 Order name: EKG - Nurse/Tech; Complete Time: 13:56 kb 12/01 16:39 Order name: US Abdomen Limited; Complete Time: 18:08 kb 12/01 13:44 Order name: IV Saline Lock; Complete Time: 13:56 kb 12/01 13:44 Order name: Labs collected and sent; Complete Time: 13:56 kb 12/01 13:44 Order name: O2 Per Protocol; Complete Time: 13:56 kb 12/01 13:44 Order name: O2 Sat Monitoring; Complete Time: 13:56 kb EC:56 Rate is 62 beats/min. Rhythm is regular. QRS [place] is Normal. IA interval is normal at kb 176 msec. QRS interval is normal at 60 msec. QT interval is normal at 428 msec. Administered Medications: 14:00 Drug: Aspirin Chewable Tablet 324 mg Route: PO; bp 15:59 Follow up: Response: No adverse reaction bp 14:00 Drug: morphine 4 mg Route: IVP; Infused Over: 4 mins; Site: right antecubital; bp 15:59 Follow up: Response: No adverse reaction bp 14:00 Drug: Zofran (Ondansetron) 4 mg Route: IVP; Site: right antecubital; bp 16:00 Follow up: Response: No adverse reaction bp Disposition Summary: 12/01/22 18:11 Discharge Ordered Location: Home kb Condition: Stable kb Diagnosis - Upper abdominal pain, unspecified kb - Chest pain, unspecified kb Followup: kb - With: Emergency Department - When: As needed - Reason: Worsening of condition Followup: kb - With: Private Physician - When: 2 - 3 days - Reason: Recheck today's complaints, Continuance of care, Re-evaluation by your physician Discharge Instructions: - Discharge Summary Sheet kb - Abdominal Pain, Adult, [id number] kb - Nonspecific Chest Pain, Adult, [id number] kb Forms: - Medication Reconciliation Form kb - Thank You Letter kb - Antibiotic Education kb - Prescription Opioid Use kb Addendum: 12/04/2022 19:52 Co-signature as Attending Physician, Erasto Rubio MD I reviewed the patient's care r n provided by the Advanced Practice Provider and agree with the diagnosis and treatment plan. Signatures: Dispatcher [employer] EDRI Kasandra Llanes, SLICING MACHINE OPERATOR-C SLICING MACHINE OPERATOR-Ckb Erasto Rubio MD MD rn Tamara Flynn, RN RN Jose Rausch, RN RN bp Corrections: (The following items were deleted from the chart) 12/01 18:10 17:34 Chest For PE Angio+CT.RAD.JACQUI ordered. [facility]
[2022-12-01 18:50] VITALS: TEMP 97.9
[2022-12-01 18:54] VITALS: BP 122/62; O2SAT 100
--- NOTE | 2022-12-02 16:28 | EKG ---
Test Date: 2022-12-01 Test Time: 13:50:05 Military Administrative Technician: BP MEASUREMENT RESULTS: Intervals: Rate: 62 ND: 176 QRSD: 60 QT: 422 QTc: 428 [place]: P: 59 ND: 176 QRS: 17 T: 79 INTERPRETIVE STATEMENTS: Normal sinus rhythm Cannot rule out Anterior infarct, age undetermined Abnormal ECG No previous ECG available for comparison Electronically Signed On 12-02-22 16:26:50 NEWSPAPER MANAGER by Ko Ferreira
== END 2022-12-01 18:43 | disposition home or self-care (01) ==
LOC: ER 13:34
DX: R07.89 Other chest pain (principal); R10.10 Upper abdominal pain, unspecified
CPT/HCPCS: 93005; 85025; 36415; 83735; 84484; 80053; 71045; 76705; 96375; 96374; 99284; J2405